=== PATIENT | male | born 1980 | race Asian ===

== ENCOUNTER 2023-02-10 00:10 | Emergency (ER) | payer OTHER ==
[~2023-02-10] VITALS: Ht 165.1 cm; Wt 73.2 kg
[2023-02-10 00:11] VITALS: BP 119/80; PULSE 88; RESP 20; TEMP 98.4
[2023-02-10] MEDS ORDERED: IBUP-1492 PO (00:42)
[2023-02-10] MEDS ORDERED: GABA-1216 PO (00:42)
[2023-02-10] MEDS ORDERED: KETOROLAC TROMETHAMINE 30 MG/ML VIAL IM ONE (00:45)
== END 2023-02-10 01:06 | disposition home or self-care (01) ==
LOC: EMS 00:11
DX: E11.40 Type 2 diabetes mellitus with diabetic neuropathy, unspecified (principal)
CPT/HCPCS: 99283; 82962; 96372; J1885

== ENCOUNTER 2024-02-28 03:54 | Emergency (ER) | payer OTHER ==
[~2024-02-28] VITALS: Ht 165.1 cm; Wt 73.2 kg
[~2024-02-28 03:54] MED LIST: GABA-1216 PO; IBUP-1492 PO
[2024-02-28 04:10] VITALS: BP 114/75; PULSE 97; RESP 16; TEMP 97.7; O2SAT 96
== END 2024-02-28 04:46 | disposition home or self-care (01) ==
LOC: EMS 03:55
DX: S09.93XA Unspecified injury of face, initial encounter (principal); E11.9 Type 2 diabetes mellitus without complications; Y08.89XA Assault by other specified means, initial encounter; Y93.89 Activity, other specified; Y92.89 Other specified places as the place of occurrence of the external cause; Y99.8 Other external cause status
CPT/HCPCS: 99282; Z7502

== ENCOUNTER 2024-08-10 21:56 | Emergency (ER) | payer MEDICAID, OTHER ==
[~2024-08-10] VITALS: Ht 165.1 cm; Wt 77.3 kg
[2024-08-10 22:14] VITALS: BP 128/72; PULSE 92; RESP 16; TEMP 98.6; O2SAT 98
== END 2024-08-11 06:23 | disposition home or self-care (01) ==
LOC: EMS 21:56
DX: Z04.89 Encounter for examination and observation for other specified reasons (principal); E11.9 Type 2 diabetes mellitus without complications; Z79.899 Other long term (current) drug therapy
CPT/HCPCS: 99281; Z7502